=== PATIENT | female | born 1990 | race Caucasian/White ===

== ENCOUNTER 2016-07-21 15:16 | Emergency (ER) | payer SELFPAY ==
[2016-07-21] MEDS ORDERED: IBUPROFEN 800 MG TABLET PO ONE (16:25)
--- NOTE | 2016-07-21 16:25 | ER Document Report ---
ED Medical Screen (RME) - General Stated Complaint: ANKLE INJURY Time seen by provider: 16:22 Mode of Arrival: Wheelchair Information source: Patient Notes: 26-year-old female presents to ED for left ankle pain since July 16 after she rolled her ankle. She bought a brace from the [facility] or her ankle but states that the ankle is not getting better. States she's broken this ankle in the past. She states her pain is sharp and sometimes achy. Last menstrual period 2016. I have greeted and performed a rapid initial assessment of this patient. A comprehensive ED assessment and evaluation of the patient, analysis of test results and completion of medical decision making process will be conducted by an additional ED providers. - Related Data Allergies/Adverse Reactions: No Known Allergies Allergy (Verified 02/17/13 17:41) Past Medical History Musculoskeltal Medical History: Reports Hx Musculoskeletal Deformity Past Surgical History: Reports: Hx Orthopedic Surgery - Immunizations Immunizations up to date: Yes Hx Diphtheria, Pertussis, Tetanus Vaccination: Yes
[2016-07-21 18:08] VITALS: BP 119/71
--- NOTE | 2016-07-21 18:09 | ER Document Report ---
HPI - HPI Patient complains to provider of: ankle injury Onset: Other - 5 days ago Onset/Duration: Persistent Quality of pain: Achy Pain Level: 3 Context: Patient states she rolled her ankle 5 days ago while wearing flip-flops. Patient does state she has a previous history of ankle fracture involving this ankle when she was younger. Patient complains of continued pain with weightbearing. Associated Symptoms: Other Exacerbated by: Standing - Left ankle pain, Movement, Walking Relieved by: Denies Similar symptoms previously: Yes Recently seen / treated by doctor: No - ROS ROS below otherwise negative: Yes Systems Reviewed and Negative: Yes All other systems reviewed and negative - CONSTITUTIONAL Constitutional: DENIES: Fever, Chills - REPRODUCTIVE Reproductive: DENIES: : - MUSCULOSKELETAL Musculoskeletal: REPORTS: Extremity pain - Left ankle. DENIES: Swelling - DERM Skin Color: Normal Skin Problems: None Past Medical History - General Information source: Patient - Social History Smoking Status: Never Smoker Chew tobacco use (# tins/day): No Frequency of alcohol use: Occasional Drug Abuse: None Occupation: full-time student Lives with: Family Family History: None, Malignancy Patient has suicidal ideation: No Patient has homicidal ideation: No - Medical History Medical History: Negative Renal/ Medical History: Denies: Hx Peritoneal Dialysis Musculoskeltal Medical History: Reports Hx Musculoskeletal Deformity Past Surgical History: Reports: Hx Orthopedic Surgery - Immunizations Immunizations up to date: Yes Hx Diphtheria, Pertussis, Tetanus Vaccination: Yes Vertical Provider Document - CONSTITUTIONAL Agree With Documented VS: Yes Exam Limitations: No Limitations General Appearance: WD/WN, No Apparent Distress - INFECTION CONTROL TRAVEL OUTSIDE OF THE [place] IN LAST 30 DAYS: No - HEENT HEENT: Atraumatic, Normocephalic - NECK Neck: Normal Inspection, Supple - RESPIRATORY Respiratory: Breath Sounds Normal, No Respiratory Distress O2 Sat by Pulse Oximetry: 99 - CARDIOVASCULAR Cardiovascular: Regular Rate, Regular Rhythm, No Murmur Pulses: Normal: Posterior tibial, Dorsalis pedis - MUSCULOSKELETAL/EXTREMETIES Musculoskeletal/Extremeties: MAEW, Tender - Left ankle tenderness over lateral malleolar area, no edema. Patient with distal tibia tenderness as well as distal fibula tenderness, no ecchymosis or swelling, No Edema. negative: Eccymosis Notes: No deformity, no dislocation - NEURO Level of Consciousness: Awake, Alert, Appropriate Motor/Sensory: No Motor Deficit, No Sensory Deficit - DERM Integumentary: Warm, Dry, No Rash Course - Vital Signs Vital signs: Temp Pulse Resp BP Pulse Ox 98.7 F 86 18 111/69 99 07/21/16 16:21 07/21/16 16:21 07/21/16 16:21 07/21/16 16:21 07/21/16 16:21 - Diagnostic Test Radiology reviewed: Image reviewed, Reports reviewed Procedures - Immobilization Left Ankle Pre-Proc Neuro Vasc Exam: Normal Immobilizer type: Ankle stirrup Performed by: PCT Post-Proc Neuro Vasc Exam: Normal Alignment checked and good: Yes Discharge - Discharge Clinical Impression: Left ankle sprain Qualifiers: Encounter type: initial encounter Involved ligament of ankle: unspecified ligament Qualified Code(s): S93.402A - Sprain of unspecified ligament of left ankle, initial encounter Condition: Stable Disposition: HOME, SELF-CARE Instructions: Use of Crutches ([facility]), Ice & Elevation ([facility]), Ankle Stirrup Splint ([facility]), Oral Narcotic Medication ([facility]), Sprained Ankle ([facility]) Additional Instructions: Return immediately for any new or worsening symptoms Followup with your primary care provider, call tomorrow to make a followup appointment Weightbearing as tolerated Follow-up with orthopedic DrGrazyna for further evaluation, call tomorrow for an appointment Prescriptions: Hydrocodone/Acetaminophen [[place] 5-325 Tablet] 1 each PO Q4 PRN #15 tablet PRN Reason: Referrals: [facility] ([facility]) [Provider Group] - Follow up in 3-5 days
== END 2016-07-21 18:30 | disposition home or self-care (01) ==
LOC: ER 15:16
DX: S93.402A Sprain of unspecified ligament of left ankle, initial encounter (principal); X50.0XXA Overexertion from strenuous movement or load, initial encounter
CPT/HCPCS: 99283; 73590; L1830; L4350

== ENCOUNTER 2016-08-26 17:24 | Emergency (ER) | payer OTHER ==
[2016-08-26] MEDS ORDERED: METOCLOPRAMIDE HCL ORAL SOLN 10 MG/10 ML UDCUP PO ONE (19:39)
[2016-08-26] MEDS ORDERED: MAG HYDROX/AL HYDROX/SIMETH SUSP 30 ML UDCUP PO ONE (19:39)
[2016-08-26] MEDS ORDERED: LIDOCAINE 2% VISCOUS SOLN 20 ML UDCUP PO ONE (19:39)
--- NOTE | 2016-08-26 19:40 | ER Document Report ---
ED General - General Chief Complaint: Abdominal Pain Stated Complaint: ABDOMINAL PAIN Mode of Arrival: Ambulatory Information source: Patient Notes: 26-year-old female history of gastric reflux presents with complaints of epigastric abdominal burning sensation associated worsening with food with some mild nausea. Patient denies any fevers or chills denies any abdominal pain elsewhere. Patient's initial complaint was that she thought she may have parasites given that her stool is extremely but she has not noticed any parasites themselves TRAVEL OUTSIDE OF THE [place] IN LAST 30 DAYS: No - HPI Onset: Last week Onset/Duration: Waxing and waning Quality of pain: Burning Severity: Mild Pain Level: 1 Associated symptoms: Nausea Exacerbated by: Food Relieved by: Denies Similar symptoms previously: Yes Recently seen / treated by doctor: No - Related Data Allergies/Adverse Reactions: No Known Allergies Allergy (Verified 08/26/16 17:51) Past Medical History - Social History Smoking Status: Never Smoker Cigarette use (# per day): No Chew tobacco use (# tins/day): No Smoking Education Provided: No Family History: None, Malignancy Patient has suicidal ideation: No Patient has homicidal ideation: No Renal/ Medical History: Denies: Hx Peritoneal Dialysis Musculoskeltal Medical History: Reports Hx Musculoskeletal Deformity Past Surgical History: Reports: Hx Orthopedic Surgery - Immunizations Immunizations up to date: Yes Hx Diphtheria, Pertussis, Tetanus Vaccination: Yes Review of Systems - Review of Systems Notes: REVIEW OF SYSTEMS: CONSTITUTIONAL : Denies fever, chills, or sweats. Denies recent illness. EENT: Denies eye, ear, throat, or mouth pain or symptoms. Denies nasal or sinus congestion or discharge. Denies throat, tongue, or mouth swelling or difficulty swallowing. CARDIOVASCULAR: Denies chest pain. Denies palpitations or racing or irregular heart beat. Denies ankle edema. RESPIRATORY: Denies cough, cold, or chest congestion. Denies shortness of breath, difficulty breathing, or wheezing. GASTROINTESTINAL: Admits to abdominal pain GENITOURINARY: Denies difficulty urinating, painful urination, burning, frequency, blood in urine, or discharge. FEMALE GENITOURINARY: Denies vaginal bleeding, heavy or abnormal periods, irregular periods. Denies vaginal discharge or odor. MUSCULOSKELETAL: Denies back or neck pain or stiffness. Denies joint pain or swelling. SKIN: Denies rash, lesions or sores. HEMATOLOGIC : Denies easy bruising or bleeding. LYMPHATIC: Denies swollen, enlarged glands. NEUROLOGICAL: Denies confusion or altered mental status. Denies passing out or loss of consciousness. Denies dizziness or lightheadedness. Denies headache. Denies weakness or paralysis or loss of use of either side. Denies problems with gait or speech. Denies sensory loss, numbness, or tingling. Denies seizures. PSYCHIATRIC: Denies anxiety or stress. Denies depression, suicidal ideation, or homicidal ideation. ALL OTHER SYSTEMS REVIEWED AND NEGATIVE. Dictation was performed using [employer] recognition software PHYSICAL EXAMINATION: GENERAL: Well-appearing, well-nourished and in no acute distress. HEAD: Atraumatic, normocephalic. EYES: Pupils equal round and reactive to light, extraocular movements intact, conjunctiva are normal. ENT: Nares patent, oropharynx clear without exudates. Moist mucous membranes. NECK: Normal range of motion, supple without lymphadenopathy LUNGS: Breath sounds clear to auscultation bilaterally and equal. No wheezes rales or rhonchi. HEART: Regular rate and rhythm without murmurs ABDOMEN: Soft, mildly tender epigastric no rebound or guarding Female : deferred Musculoskeletal: Normal range of motion, no pitting or edema. No cyanosis. NEUROLOGICAL: Cranial nerves grossly intact. Normal speech, normal gait. Normal sensory, motor exams PSYCH: Normal mood, normal affect. SKIN: Warm, Dry, normal turgor, no rashes or lesions noted. Physical Exam - Vital signs Vitals: Temp Pulse Resp BP Pulse Ox 98.3 F 79 16 130/88 H 98 08/26/16 17:52 08/26/16 17:52 08/26/16 17:52 08/26/16 17:52 08/26/16 17:52 Course - Re-evaluation Re-evalutation: 08/26/16 21:09 Physical examination notes mild tenderness, GI cocktail was given which resolved patient's pain. I do believe the pain secondary to gastric reflux. Patient is already on Zantac and will be given omeprazole as well. Patient is given a GI follow-up. Otherwise patient looks well, I did ask for a stool culture but given that white count is not elevated she has less concern for parasite and will defer at this time After performing a Medical Screening Examination, I estimate there is LOW risk for ACUTE APPENDICITIS, BOWEL OBSTRUCTION, ACUTE CHOLECYSTITIS, PERFORATED DIVERTICULITIS, INCARCERATED HERNIA, PANCREATITIS, PELVIC INFLAMMATORY DISEASE, PERFORATED ULCER, ECTOPIC , or TUBO-OVARIAN ABSCESS, thus I consider the discharge disposition reasonable. Also, there is no evidence or peritonitis , sepsis, or toxicity. I have reevaluated this patient multiple times and no significant life threatening changes are noted. The patient and I have discussed the diagnosis and risks, and we agree with discharging home with close follow-up with the understanding that symptoms and presentations can change. We also discussed returning to the Emergency Department immediately if new or worsening symptoms occur. We have discussed the symptoms which are most concerning (e.g., bloody stool, fever, changing or worsening pain, vomiting) that necessitate immediate return. - Vital Signs Vital signs: Temp Pulse Resp BP Pulse Ox 97.7 F 78 16 108/75 98 08/26/16 20:52 08/26/16 20:52 08/26/16 20:52 08/26/16 20:52 08/26/16 20:52 - Laboratory Result Diagrams: 08/26/16 20:02 08/26/16 20:02 Laboratory results interpreted by me: 08/26/16 08/26/16 08/26/16 20:02 20:02 20:02 Hgb 15.7 H Calcium 10.3 H Total Protein 9.0 H Albumin 5.2 H Ur Leukocyte Esterase TRACE H Discharge - Discharge Clinical Impression: Epigastric abdominal pain Condition: Stable Disposition: HOME, SELF-CARE Instructions: Abdominal Pain ([facility]), Reflux Disease (GERD) ([facility]) Prescriptions: Omeprazole 20 mg PO DAILY #30 tablet. Referrals: JAKOB OCHOA MD [ACTIVE STAFF] - Follow up tomorrow
[2016-08-26 20:15] LABS: ABSOLUTE BASOPHILS # (AUTO) 0.1 10^3/uL (0.0-0.2); ABSOLUTE EOSINOPHILS # (AUTO) 0.3 10^3/uL (0.0-0.6); ABSOLUTE LYMPHOCYTES (AUTO) 2.9 10^3/uL (0.5-4.7); ABSOLUTE MONOCYTES (AUTO) 0.7 10^3/uL (0.1-1.4); BASOPHILS % (AUTO) 0.8 % (0-2); EOSINOPHILS % (AUTO) 3.4 % (0-6); HEMOGLOBIN 15.7 g/dL (12.0-15.5); HGB HCT DIFFERENCE 2.1; LYMPHOCYTES % (AUTO) 32.1 % (13-45); MEAN CORPUSCULAR HEMOGLOBIN 29.6 pg (27.0-33.4); MEAN CORPUSCULAR HGB CONC 34.8 g/dL (32.0-36.0); MEAN CORPUSCULAR VOLUME 85 fl (80-97); MONOCYTES % (AUTO) 7.7 % (3-13); RED BLOOD COUNT 5.28 10^6/uL (3.72-5.28); RED CELL DISTRIBUTION WIDTH 12.8 % (11.5-14.0); WHITE BLOOD COUNT 8.9 10^3/uL (4.0-10.5)
[2016-08-26 20:30] LABS: ALANINE AMINOTRANSFERASE 32 U/L (9-52); ALBUMIN 5.2 g/dL (3.5-5.0); ALKALINE PHOSPHATASE 75 U/L (38-126); ANION GAP 17 (5-19); ASPARTATE AMINO TRANSFERASE 24 U/L (14-36); BILIRUBIN,DIRECT 0.4 mg/dL (0.0-0.4); BILIRUBIN,TOTAL 0.7 mg/dL (0.2-1.3); BLOOD UREA NITROGEN 8 mg/dL (7-20); CALCIUM 10.3 mg/dL (8.4-10.2); CARBON DIOXIDE 28 mmol/L (22-30); CHLORIDE 99 mmol/L (98-107); CREATININE RESULT 0.72 mg/dL (0.52-1.25); GLUCOSE 95 mg/dL (75-110); LIPASE 54.8 U/L (23-300); POTASSIUM 4.3 mmol/L (3.6-5.0); SODIUM 143.6 mmol/L (137-145)
[2016-08-26 20:32] LABS: APPEARANCE,URINE CLEAR; BILIRUBIN,URINE NEGATIVE (NEGATIVE); GLUCOSE, URINE NEGATIVE (NEGATIVE); KETONES,URINE NEGATIVE (NEGATIVE); LEUKOCYTE ESTERASE,URINE TRACE (NEGATIVE); NITRITE,URINE NEGATIVE (NEGATIVE); PROTEIN,URINE NEGATIVE (NEGATIVE); URINE SPECIFIC GRAVITY 1.006; UROBILINOGEN,URINE NEGATIVE mg/dL (<2.0)
[2016-08-26 20:52] VITALS: BP 108/75
== END 2016-08-26 20:52 | disposition home or self-care (01) ==
LOC: ER 17:24
DX: R10.13 Epigastric pain (principal); R11.0 Nausea; Z79.899 Other long term (current) drug therapy
CPT/HCPCS: 99284; 36415; 83690; 85025; 81025; 80053; 81001; J3490

== ENCOUNTER 2017-06-10 12:38 | Outpatient (CLI) | payer OTHER ==
[2017-06-10 13:19] LABS: APPEARANCE,URINE SLIGHTLY-CLOUDY; BILIRUBIN,URINE NEGATIVE (NEGATIVE); COLOR,URINE YELLOW; GLUCOSE, URINE NEGATIVE (NEGATIVE); KETONES,URINE TRACE mg/dL (NEGATIVE); LEUKOCYTE ESTERASE,URINE TRACE (NEGATIVE); NITRITE,URINE NEGATIVE (NEGATIVE); PROTEIN,URINE NEGATIVE (NEGATIVE); UROBILINOGEN,URINE NEGATIVE mg/dL (<2.0)
[2017-06-10 13:36] LABS: URINE AMPHETAMINES SCREEN NEGATIVE; URINE BARBITURATES SCREEN NEGATIVE; URINE BENZODIAZEPINES SCREEN NEGATIVE; URINE COCAINE SCREEN NEGATIVE; URINE MARIJUANA (THC) SCREEN NEGATIVE; URINE METHADONE SCREEN NEGATIVE; URINE PHENCYCLIDINE SCREEN NEGATIVE
--- NOTE | 2017-06-10 13:42 | Non Stress Test Report ---
Non Stress Test Datetime Report Generated by CPN: 06/10/2017 13:42 DEMOGRAPHIC EGA NST: 35.3 INDICATION Indication for Study: Ordered by Provider MONITORING Monitor Explained: Monitor Explained; Test Explained; Patient Verbalized Understanding Time on Monitor: 06/10/2017 12:57 Time off Monitor: 06/10/2017 13:33 NST Duration: 36 NST INTERVENTIONS NST Interventions: PO Hydration; Reposition Patient Physician Notified NST: DrGrazyna Bolaños BABY A: [id number] BABY A Movement : Present Contraction Frequency : 1.5-6 FHR Baseline : 125 Accelerations : 15X15 Decelerations : None Variability : Moderate 6-25bpm NST Review: Meets Criteria for Reactive NST NST Review and Verified By : Kristie Taylor RN NST Results: Reactive NST REPORT Report Trigger: Send Report
== END 2017-06-10 13:40 | disposition home or self-care (01) ==
LOC: LC 12:38
PROVIDERS: ATTEND Student in an Organized Health Care Education/Training Program
PROC: 4A1HXCZ Monitoring of Products of Conception, Cardiac Rate, External Approach (ICD-10-PCS; principal; 2017-06-10)
DX: O99.283 Endocrine, nutritional and metabolic diseases complicating pregnancy, third trimester (principal); E86.0 Dehydration; O26.893 Other specified pregnancy related conditions, third trimester; R10.2 Pelvic and perineal pain; Z3A.35 35 weeks gestation of pregnancy
CPT/HCPCS: 59025; 80307; 81001; 87086

== ENCOUNTER 2017-07-11 23:48 | Outpatient (CLI) | payer OTHER ==
[2017-07-12 00:41] LABS: APPEARANCE,URINE CLEAR; BILIRUBIN,URINE NEGATIVE (NEGATIVE); COLOR,URINE STRAW; GLUCOSE, URINE NEGATIVE (NEGATIVE); KETONES,URINE NEGATIVE (NEGATIVE); LEUKOCYTE ESTERASE,URINE NEGATIVE (NEGATIVE); NITRITE,URINE NEGATIVE (NEGATIVE); PROTEIN,URINE NEGATIVE (NEGATIVE); URINE SPECIFIC GRAVITY 1.003; UROBILINOGEN,URINE NEGATIVE mg/dL (<2.0)
[2017-07-12 01:33] LABS: URINE AMPHETAMINES SCREEN NEGATIVE; URINE BARBITURATES SCREEN NEGATIVE; URINE BENZODIAZEPINES SCREEN NEGATIVE; URINE COCAINE SCREEN NEGATIVE; URINE MARIJUANA (THC) SCREEN NEGATIVE; URINE METHADONE SCREEN NEGATIVE; URINE PHENCYCLIDINE SCREEN NEGATIVE
--- NOTE | 2017-07-12 03:33 | Non Stress Test Report ---
Non Stress Test Datetime Report Generated by CPN: 07/12/2017 03:33 DEMOGRAPHIC EGA NST: 40.0 INDICATION Indication for Study: Other Indication for Study (NST) Other: LC URINE RESULTS Urine Protein, NST: Negative Urine Ketones - NST: Negative Urine Glucose - NST: Negative Urine Blood - NST: Positive MONITORING Monitor Explained: Monitor Explained; Test Explained; Patient Verbalized Understanding Time on Monitor: 07/12/2017 00:07 NST INTERVENTIONS NST Interventions: PO Hydration Physician Notified NST: Dr. Christian BABY A: [id number] BABY A Movement : Present Accelerations : 15X15 Decelerations : None Variability : Moderate 6-25bpm NST Review: Does Not Meet Criteria for Reactive NST NST Review and Verified By : Maria Dolores Benedict RN NST Results: Reactive NST REPORT Report Trigger: Send Report
== END 2017-07-12 03:19 | disposition home or self-care (01) ==
LOC: LC 23:48
PROVIDERS: ATTEND Obstetrics & Gynecology
PROC: 4A1HXCZ Monitoring of Products of Conception, Cardiac Rate, External Approach (ICD-10-PCS; principal; 2017-07-11)
DX: O47.1 False labor at or after 37 completed weeks of gestation (principal); O48.0 Post-term pregnancy; Z3A.40 40 weeks gestation of pregnancy
CPT/HCPCS: 59025; 80307; 81005

== ENCOUNTER 2017-07-14 04:35 | Inpatient (IN) | payer OTHER ==
[2017-07-14 05:40] LABS: APPEARANCE,URINE CLOUDY; BILIRUBIN,URINE NEGATIVE (NEGATIVE); COLOR,URINE YELLOW; GLUCOSE, URINE NEGATIVE (NEGATIVE); KETONES,URINE NEGATIVE (NEGATIVE); LEUKOCYTE ESTERASE,URINE TRACE (NEGATIVE); NITRITE,URINE NEGATIVE (NEGATIVE); PROTEIN,URINE NEGATIVE (NEGATIVE); URINE SPECIFIC GRAVITY 1.005; UROBILINOGEN,URINE NEGATIVE mg/dL (<2.0)
[2017-07-14 05:55] LABS: URINE AMPHETAMINES SCREEN NEGATIVE; URINE BARBITURATES SCREEN NEGATIVE; URINE BENZODIAZEPINES SCREEN NEGATIVE; URINE COCAINE SCREEN NEGATIVE; URINE MARIJUANA (THC) SCREEN NEGATIVE; URINE METHADONE SCREEN NEGATIVE; URINE PHENCYCLIDINE SCREEN NEGATIVE
[2017-07-14 06:04] LABS: ABSOLUTE EOSINOPHILS # (AUTO) 0.2 10^3/uL (0.0-0.6); ABSOLUTE LYMPHOCYTES (AUTO) 1.8 10^3/uL (0.5-4.7); ABSOLUTE MONOCYTES (AUTO) 0.9 10^3/uL (0.1-1.4); ABSOLUTE NEUT (AUTO) 6.4 10^3/uL (1.7-8.2); BASOPHILS % (AUTO) 0.2 % (0-2); EOSINOPHILS % (AUTO) 1.9 % (0-6); HEMATOCRIT 39.7 % (36.0-47.0); HEMOGLOBIN 13.6 g/dL (12.0-15.5); LYMPHOCYTES % (AUTO) 19.4 % (13-45); MEAN CORPUSCULAR HGB CONC 34.2 g/dL (32.0-36.0); MEAN CORPUSCULAR VOLUME 88 fl (80-97); MONOCYTES % (AUTO) 9.8 % (3-13); PLATELET COUNT 199 10^3/uL (150-450); RED BLOOD COUNT 4.52 10^6/uL (3.72-5.28); RED CELL DISTRIBUTION WIDTH 14.7 % (11.5-14.0); SEGMENTED NEUTROPHILS % (AUTO) 68.7 % (42-78); TOTAL CELLS COUNTED % (AUTO) 100 %; WHITE BLOOD COUNT 9.3 10^3/uL (4.0-10.5)
[2017-07-14] MEDS ORDERED: RINGERS SOLUTION,LACTATED 1,000 ML IV ONE (06:48)
[2017-07-14] MEDS ORDERED: RINGERS SOLUTION,LACTATED 1,000 ML IV PRN (06:48)
[2017-07-14] MEDS ORDERED: MISOPROSTOL 0.2 MG TABLET ONE (06:58)
[2017-07-14] MEDS ORDERED: FENTANYL/BUPIVACAINE/NS/PF 200 MCG/100 ML RTUINJ EPI ONE (06:59)
[2017-07-14] MEDS ORDERED: EPHEDRINE SULFATE INJ 50 MG/1 ML AMPULE ONE (06:59)
[2017-07-14] MEDS ORDERED: BUPIVACAINE HCL 0.25 % INJ/PF (2.5 MG/1 ML) 30 ML VIAL ONE (06:59)
[2017-07-14] MEDS ORDERED: OXYTOCIN/NORMAL SALINE 20 UNIT/1,000 ML RTUINJ ONE (06:59)
[2017-07-14] MEDS ORDERED: LIDOCAINE 1% INJ-PF (10 MG/ML) 30 ML SDV ONE (06:59)
--- NOTE | 2017-07-14 09:44 | L&D Progress Notes ---
PROGRESS NOTES Datetime Report Generated by CPN: 07/14/2017 09:44 PROGRESS NOTE Impression: Normal Progression of Labor Procedures: Sterile Vag Exam Plan: Continue Present Management Informed Consent Obtained: Vaginal Delivery Comment: Cat 1 strip, comfortable after epidural, irregular uc's VAGINAL EXAM Dilatation: 4 Effacement: 75 Station: -1 Contractions: irreg MEMBRANES Membranes: Ruptured Amniotic Fluid Color: Meconium, Heavy FETUS A FHR - Baseline: 130 Monitoring: External US Variability: Moderate 6-25bpm Accelerations: 15X15 Presentation: Vertex SIGNATURE SIGNATURE: [id number];[id number] SIGNATURE: [id number] SIGNATURE: [id number] Assignment: Radha Gonzales MD Signature: with User ID: [email or web address] : with User ID: [email or web address]
--- NOTE | 2017-07-14 11:10 | L&D Progress Notes ---
PROGRESS NOTES Datetime Report Generated by CPN: 07/14/2017 11:09 PROGRESS NOTE Comment: Feeling more pressure, complete, -2, will sit pt up to labor down and then start pushing, Cat 1 strip FETUS C SIGNATURE: [id number];[id number] Assignment: Radha Gonzales MD Signature: with User ID: [email or web address] : with User ID: [email or web address]
[2017-07-14] MEDS ORDERED: NALBUPHINE HCL INJ 10 MG/1 ML AMPULE ONE (14:44)
[2017-07-14] MEDS ORDERED: NALBUPHINE HCL INJ 10 MG/1 ML AMPULE IV ONE (15:11)
[2017-07-14 15:12] LABS: ARTERIAL BLOOD BASE EXCESS -6.5 mmol/L; ARTERIAL BLOOD H2CO3 1.24 mmol/L (1.05-1.35); ARTERIAL BLOOD HCO3 19.6 mmol/L (20-26); ARTERIAL BLOOD O2 SATURATION 68.9 % (94-98); ARTERIAL BLOOD PCO2 41.2 mmHg (35-45); ARTERIAL BLOOD TOTAL CO2 20.9 mmol/L (21-25)
[2017-07-14] MEDS ORDERED: NA PHOS,M-B/NA PHOS,DI-BA (ADULT) 133 ML ENEMA PR PRN (15:12)
[2017-07-14] MEDS ORDERED: ACETAMINOPHEN WITH CODEINE #3 TABLET PO PRN ×2 (15:12)
[2017-07-14] MEDS ORDERED: MEASLES,MUMPS&RUBELLA VACC/PF 0.5 ML VIAL SUBCUT PRN (15:12)
[2017-07-14] MEDS ORDERED: PSEUDOEPHEDRINE HCL 30 MG TABLET PO PRN (15:12)
[2017-07-14] MEDS ORDERED: ACETAMINOPHEN 650 MG SUPP.RECT PR PRN (15:12)
[2017-07-14] MEDS ORDERED: DIPH/PERTUSS(ACELL)/TETANUS VAC/PF 0.5 ML SYR (>=10YO) IM PRN (15:12)
[2017-07-14] MEDS ORDERED: BENZOCAINE/MENTHOL AEROSOL SPRAY 56 ML TOP PRN (15:12)
[2017-07-14] MEDS ORDERED: DIPHENHYDRAMINE HCL 25 MG CAPSULE PO PRN (15:12)
[2017-07-14] MEDS ORDERED: PROMETHAZINE HCL INJ 25 MG/1 ML VIAL IV PRN (15:12)
[2017-07-14] MEDS ORDERED: OXYTOCIN/NORMAL SALINE 20 UNIT/1,000 ML RTUINJ IV PRN (15:12)
[2017-07-14] MEDS ORDERED: DIBUCAINE 1% OINTMENT 28 GM TP PRN (15:12)
[2017-07-14] MEDS ORDERED: MAGNESIUM HYDROXIDE SUSP 30 ML UDCUP PO PRN (15:12)
[2017-07-14] MEDS ORDERED: GLYCERIN/WITCH HAZEL LEAF 1 EACH MED..PAD TP PRN (15:12)
[2017-07-14] MEDS ORDERED: PROMETHAZINE HCL 25 MG SUPP.RECT PR PRN (15:12)
[2017-07-14] MEDS ORDERED: PROMETHAZINE HCL 25 MG TABLET PO PRN (15:12)
[2017-07-14] MEDS ORDERED: MISOPROSTOL 0.2 MG TABLET PR PRN (15:12)
[2017-07-14 15:13] LABS: ARTERIAL BLOOD FIO2 CORD BLOOD; ARTERIAL BLOOD PO2 39.6 mmHg (80-100)
--- NOTE | 2017-07-14 15:14 | Warning Signs in Babies ---
VOD Warning Signs Datetime Report Generated by N: 07/14/2017 15:14 VOD#608 -Warning Signs in Babies: Viewed with Parent(s)/Family (07/14/2017 15:12:Arcelia Montejo RN)
[2017-07-14] MEDS: FERROUS SULFATE 325 MG TABLET PO SCH (18:12)
[2017-07-14] MEDS: DOCUSATE SODIUM 100 MG CAPSULE PO SCH (18:13)
[2017-07-14] MEDS ORDERED: METHYLERGONOVINE MALEATE 0.2 MG TABLET ONE (20:09)
[2017-07-14] MEDS ORDERED: ONDANSETRON 4 MG TAB.RAPDIS ONE (20:09)
[2017-07-14] MEDS ORDERED: ONDANSETRON 4 MG TAB.RAPDIS PO ONE (20:30)
[2017-07-14] MEDS ORDERED: METHYLERGONOVINE MALEATE 0.2 MG TABLET PO ONE (20:30)
[2017-07-14 20:47] LABS: HEMOGLOBIN 12.5 g/dL (12.0-15.5); MEAN CORPUSCULAR HEMOGLOBIN 29.5 pg (27.0-33.4); MEAN CORPUSCULAR HGB CONC 33.7 g/dL (32.0-36.0); MEAN CORPUSCULAR VOLUME 88 fl (80-97); PLATELET COUNT 178 10^3/uL (150-450); RED BLOOD COUNT 4.23 10^6/uL (3.72-5.28); RED CELL DISTRIBUTION WIDTH 14.4 % (11.5-14.0); WHITE BLOOD COUNT 17.3 10^3/uL (4.0-10.5)
[2017-07-14] MEDS ORDERED: FAMOTIDINE 20 MG TABLET PO SCH (22:00)
[2017-07-14] MEDS: IBUPROFEN 800 MG TABLET PO SCH (22:08)
[2017-07-15] MEDS: IBUPROFEN 800 MG TABLET PO SCH ×3 (05:04→21:55)
[2017-07-15 07:54] LABS: HEMATOCRIT 37.4 % (36.0-47.0); HEMOGLOBIN 12.6 g/dL (12.0-15.5); MEAN CORPUSCULAR HEMOGLOBIN 29.7 pg (27.0-33.4); MEAN CORPUSCULAR HGB CONC 33.8 g/dL (32.0-36.0); MEAN CORPUSCULAR VOLUME 88 fl (80-97); PLATELET COUNT 149 10^3/uL (150-450); RED BLOOD COUNT 4.25 10^6/uL (3.72-5.28); RED CELL DISTRIBUTION WIDTH 14.7 % (11.5-14.0); WHITE BLOOD COUNT 12.3 10^3/uL (4.0-10.5)
--- NOTE | 2017-07-15 10:13 | PDOC PROGRESS REPORT ---
Subjective-OB Progress Note for:: 07/15/17 Physical Exam (OB) Vital Signs: Temp Pulse Resp BP Pulse Ox 97.9 F 83 18 115/68 97 07/15/17 07:58 07/15/17 07:58 07/15/17 07:58 07/15/17 07:58 07/15/17 07:58 Intake & Output 07/14/17 07/15/17 07/16/17 06:59 06:59 06:59 Weight 106.633 kg - Lochia Lochia Amount: Moderate 25-50 ml Lochia Color: Rubra/Red - Abdomen Description: Soft, Flat Hernia Present: No Fundal Description: Firm, Midline Fundal Height: u/u - u/2 - Respiratory Breath sounds: Clear - Extremities Ankle: Normal Objective-Diagnostic Laboratory: 07/15/17 07:19 07/14/17 07/14/17 07/15/17 14:23 20:35 07:19 WBC 17.3 H 12.3 H RBC 4.23 4.25 Hgb 12.5 12.6 Hct 37.0 37.4 MCV 88 88 MCH 29.5 29.7 MCHC 33.7 33.8 RDW 14.4 H 14.7 H Plt Count 178 149 L Carbonic Acid 1.24 HCO3/H2CO3 Ratio 15:1 ABG pH 7.30 L ABG pCO2 41.2 ABG pO2 39.6 L* ABG HCO3 19.6 L ABG O2 Saturation 68.9 L ABG Base Excess -6.5 FiO2 CORD BLOOD
[2017-07-15] MEDS: FERROUS SULFATE 325 MG TABLET PO SCH ×2 (10:27→21:53)
[2017-07-15] MEDS: DOCUSATE SODIUM 100 MG CAPSULE PO SCH ×2 (10:27→21:53)
[2017-07-15] MEDS: SENNOSIDES/DOCUSATE 8.6-50 MG 1 EACH TABLET PO SCH (10:27)
[2017-07-15] MEDS: PRENATAL VITAMIN W DHA CAPSULE PO SCH (10:27)
[2017-07-16] MEDS: IBUPROFEN 800 MG TABLET PO SCH ×2 (06:16→14:30)
[2017-07-16 08:37] VITALS: BP 123/67
--- NOTE | 2017-07-16 10:11 | PDOC DISCHARGE SUMMARY ---
Final Diagnosis Discharge Date: 07/16/17 - Final Diagnosis (1) Normal vaginal delivery Is this a current diagnosis for this admission?: Yes (2) Spontaneous rupture of amniotic membranes Is this a current diagnosis for this admission?: Yes (3) Thick meconium stained amniotic fluid Is this a current diagnosis for this admission?: Yes Discharge Data - Discharge Medication Prescriptions: Docusate Sodium [Colace 100 mg Capsule] 100 mg PO BID #60 capsule Ibuprofen [Motrin 800 mg Tablet] 800 mg PO Q8 #60 tablet Home Medications: No122/Iron/Folic Acid [ Multi Tablet] 1 each PO DAILY 06/10/17 Ranitidine HCl [Zantac 75 mg Tablet] 75 mg PO PRN PRN 07/14/17 Docusate Sodium [Colace 100 mg Capsule] 100 mg PO BID #60 capsule 07/16/17 Ibuprofen [Motrin 800 mg Tablet] 800 mg PO Q8 #60 tablet 07/16/17 Reason(s) for Admission: Onset of Labor Procedures: NST Intrapartum Procedure(s): Spontaneous Vaginal Delivery Complication(s): Laceration-Perineal Laceration-Degree: 2nd - Flushing Data Baby 1 Female Home with Mother: Yes Complications: Yes - nicu in meconium - Diagnosis Test Laboratory: Temp Pulse Resp BP Pulse Ox 98.3 F 85 18 123/67 98 07/16/17 08:05 07/16/17 08:05 07/16/17 08:05 07/16/17 08:05 07/16/17 08:05 07/14/17 07/14/17 07/14/17 04:47 05:45 20:35 RBC 4.52 4.23 Hgb 13.6 12.5 Hct 39.7 37.0 Urine Opiates Screen NEGATIVE 07/15/17 07:19 RBC 4.25 Hgb 12.6 Hct 37.4 Urine Opiates Screen - Discharge information/Instructions Discharge Activity: Activity As Tolerated, Pelvic Rest, No tub bath Discharge Diet: Regular Disposition: HOME, SELF-CARE Follow up with: [facility] in: 4, Weeks
[2017-07-16] MEDS: FERROUS SULFATE 325 MG TABLET PO SCH (11:30)
[2017-07-16] MEDS: DOCUSATE SODIUM 100 MG CAPSULE PO SCH (11:30)
[2017-07-16] MEDS: SENNOSIDES/DOCUSATE 8.6-50 MG 1 EACH TABLET PO SCH (11:30)
[2017-07-16] MEDS: PRENATAL VITAMIN W DHA CAPSULE PO SCH (11:30)
--- NOTE | 2017-07-17 12:59 | Admission Physical ---
Datetime Report Generated by Cher: 07/17/2017 12:59 EGA: 40.2 Informed Consent Obtained: Vaginal Delivery; Risks, Benefits and Alternatives Discussed Signature: with User ID: [email or web address]
--- NOTE | 2017-07-17 12:59 | Delivery Summary ---
Del Sum A-C Datetime Report Generated by CPN: 07/17/2017 12:59 DELIVERY PERSONNEL DELIVERY PERSONNEL: [id number] Delivery Doctor:: Stephanie Hobbs CNM Labor and Delivery Nurse:: NARESH Jane Labor and Delivery Nurse:: Arcelia Montejo RN Nursery Nurse:: Porsche Moreno RN Nursery Nurse:: Mily Donovan RN Student Observers:: Jody Parson [place], Danielle McCartney Car Changer/SEWER PIPE OFFBEARER: Abi Vazquez, ST MATERNAL INFORMATION Delivery Anesthesia: Epidural Medications During Delivery: none Medications After Delivery: Pitocin Bolus-Please Comment; Pitocin Drip 20 Units/1000ml NSS; Cytotec 600mcg Per Rectum/Vagina Meds After Delivery Comment: pitocin 20 units in 1000ml NS bolusing after delivery of placenta Maternal Complications: None Provider Comments: Pt progressed and vtx was delivered, NC x 1, loosley, delivered without difficulty, large amount of thick mec, shoulders trying to deliver, Shira, pushing, suprapubic pressure with delivery of body, poor maternal effort after vtx delivered, OA to VIRY, rt shoulder stuck, placed on mothers abd, suctioned, large mec, cord clamped and cut by HSB [facility]. Cord gas obtained, cord blood to lab, spont delivery of grossly large mec stained placenta, 3 VC cytotec 600 mcg via rectum Laceration repaired with 2-0 chromic without difficulty sponge removed, rectum patent, FFFM Baby to nursery for stabilization, O 2 and suctioned, LABOR SUMMARY EDC: 07/12/2017 00:00 No. Babies in Womb: 1 Attempted: No Labor Anesthesia: Epidural LABOR INFORMATION Reason for Induction: Not Applicable Onset of Labor: 07/14/2017 08:00 Complete Dilatation: 07/14/2017 12:56 Cervical Ripening Agents: Cytotec @ 600 Oxytocin: N/A Group B Beta Strep: negative Antibiotics # of Doses: 0 Antibiotics Time of Last Dose: n/a Name of Antibiotic Given: n/a Steroids Given: None Reason Steroids Not Administered: Not Applicable Other Reason Not Administered: n/a MEMBRANES Membranes Rupture Method: Spontaneous Rupture of Membranes: 07/14/2017 04:00 Length of Rupture (hr): 10.52 Amniotic Fluid Color: Moderate Meconium Amniotic Fluid Amount: Large Amniotic Fluid Odor: Normal STAGES OF LABOR Stage 1 hr: 4 Stage 1 min: 56 Stage 2 hr: 1 Stage 2 min: 35 Stage 3 hr: 0 Stage 3 min: 4 Total Time in Labor hr: 6 Total Time in Labor min: 35 VAGINAL DELIVERY Episiotomy: Median Laceration #1: Vaginal Laceration Extension #1: Second Degree Laceration Repair: Yes Laceration Repair Note: 2-0 chromic, repaired without difficulty, Nubain 10 and 10cc Xylocaine 1 % Sponge Count Correct: N/A Sharps Count Correct: N/A CSECTION DELIVERY Primary Indication: N/A Secondary Indication: N/A CSection Incidence: N/A Labor: N/A Elective: N/A CSection Incision: N/A BABY A INFORMATION Infant Delivery Date/Time: 07/14/2017 14:31 Method of Delivery: Vaginal Born in Route : No : N/A Forceps: N/A Vacuum Extraction: N/A Shoulder Dystocia : Yes SHOULDER DYSTOCIA BABY A Delivery of Head: 07/14/2017 14:29 Time Head to Delivery : 2.0 1st Intervention to Resolve: McRobert's Maneuver 2nd Intervention to Resolve: Suprapubic Pressure Verify NO Fundal Pressure: No Fundal Pressure Applied PRESENTATION/POSITION BABY A Presentation: Cephalic Cephalic Presentation: Vertex Vertex Position: Right Occipital Anterior Breech Presentation: N/A PLACENTA INFORMATION BABY A Placenta Delivery Time : 07/14/2017 14:35 Placenta Method of Delivery: Spontaneous Placenta Status: Delivered SCORES BABY A Heart Rate 1 min: >100 bpm Resp Effort 1 min: Slow, Irregular Reflex Irritability 1 min: Grimace Muscle Tone 1 min: Some Flexion of Extremities Color 1 min: Blue/Pale Resuscitation Effort 1 min: Tactile Stimulation; Oxygen SCORE 1 MIN: 5 Heart Rate 5 min: >100 bpm Resp Effort 5 min: Slow, Irregular Reflex Irritability 5 min: Cough or Sneeze or Pulls Away Muscle Tone 5 min: Some Flexion of Extremities Color 5 min: Body [place], Extremities Blue Resuscitation Effort 5 min: Tactile Stimulation; Oxygen; PPV/NCPAP SCORE 5 MIN: 7 INFORMATION BABY A Gestational Age at Delivery: 40.2 Gestational Status: Full Term- 39- 40.6 Weeks Infant Outcome : Liveborn Infant Condition : Stable Sex: Female IDENTIFICATION BABY A Infant Verification Date/Time: 07/14/2017 14:43 ID Band Number: [id number] Mother's Name Verified: Yes RN Verifying : A Hua RN Colette Gonzales RN WEIGHT/LENGTH BABY A Infant Birthweight (gm): 4150 Infant Weight (lb): 9 Infant Weight (oz): 2 Length (in): 21.00 Infant Length (cm): 53.34 CORD INFORMATION BABY A No. Cord Vessels: 3 Nuchal Cord : Around Neck x1, Loose Cord Blood Taken: Yes-For Eval (Mom's Blood Type - or O+) Suction: Mouth; Nose ASSESSMENT BABY A Skin to Skin: Yes Care By: Porsche Moreno RN, Mily Donovan RN Transferred To: NICU BABY B INFORMATION : N/A
--- NOTE | 2017-07-17 13:01 | Admission Physical ---
Datetime Report Generated by Cher: 07/17/2017 13:01 EGA: 40.2 Informed Consent Obtained: Vaginal Delivery; Risks, Benefits and Alternatives Discussed Signature: with User ID: [email or web address]
--- NOTE | 2017-07-17 13:08 | Admission Physical ---
Datetime Report Generated by CPN: 07/17/2017 13:07 CURRENT ADMISSION Chief Complaint: Uterine Contractions; Suspected Ruptured Membranes Indication for Induction: Not Applicable Admit Impression : Term, Intrauterine ; No Active Labor; Ruptured Membranes Admit Plan: Admit to Unit ALLERGIES Medication Allergies: No Medication Allergies: No Known Allergies (07/14/2017) Medication Allergies: No Known Allergies (08/26/2016) Latex: No Latex Allergies Food Allergies: N/A Environmental Allergies: Seasonal OBSTETRICAL HISTORY EDC: 07/12/2017 00:00 : 1 Para: 0 Term: 0 : 0 SAB: 0 IAB: 0 Ectopic: 0 Livin Cesareans: 0 VBACs: 0 Multiple Births: 0 Gestational Diabetes: Yes Rh Sensitization: No Incompetent Cervix: No ADRIANA: No Infertility: No ART Treatment: No Uterine Anomaly: No IUGR: No Hx Previous C/S: No Macrosomia: No Hx Loss/Stillborn: No PIH: No Hx : No Placenta Previa/Abruption: No Depression/PP Depression: No PTL/PROM: No Post Hemorrhage: No Current Procedures: Ultrasound; NST Obstetrical History Comments: G1 - Current SEE RECORDS Alcohol: No Marijuana : No Cocaine: No Other Illicit Drugs: No Cigarettes: Former Smoker. 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 Heart Disease: No Hosp/Surgery: No Autoimmune Disorder: No Anesthetic Complications: No Kidney Disease: Yes Abnormal Pap Smear: No Neuro/Epilepsy: No Psychiatric Disorders: No Other Medical Diseases: No Hepatitis/Liver Disease: No Significant Family History: No Varicosities/Phlebitis: No Trauma/Violence : No Thyroid Dysfunction: No Medical History Comments: UTI INFECTIOUS HISTORY Gonorrhea: No Genital Herpes: No Chlamydia: No Tuberculosis: No Syphilis: No Hepatitis: No HIV/AIDS Exposure: No Rash or Viral Illness: No HPV: No PHYSICAL EXAM General: Normal HEENT: Normal Neurologic: Normal Thyroid: Deferred Heart: Normal Lungs: Normal Breast: Deferred Back: Normal Abdomen: Normal Genitourinary Exam: Normal Extremities: Normal DTRs: Normal Pelvic Type: Adequate Vital Signs: Reviewed VAGINAL EXAM Dilatation: 4 Effacement: 75 Station: -1 Contraction Comments: irreg MEMBRANES Membranes: Ruptured Amniotic Fluid Color: Meconium, Heavy FETUS A EGA: 40.2 Monitoring: External US FHR- Baseline: 155 Variability: Moderate 6-25bpm Accelerations: 15X15 Decelerations: None FHR Category: Category I Presentation: Vertex Admit Comment: 27yo at 40+2ega presents for SROM at approx 0400 with meconium. c/b anxiety. 1 hr normal but baby measuring large at 32wks - was checking BS and not compliant. EFW 7#7oz on 06/26. GBS negative. Admit to L_D for SROM in early labor. Will augment with pitocin if needed. (Annotations: Data stored by N on behalf of user) PLANS FOR LABOR AND DELIVERY Labor and Delivery: None Pain Management: Epidural Feeding Preference: Breast Benefit of Breast Feed Discussed: Yes Circumcision: N/A INFORMED CONSENT Informed Consent Obtained: Vaginal Delivery Informed Consent Obtained: Vaginal Delivery; Risks, Benefits and Alternatives Discussed Signature: with User ID: [email or web address]
--- NOTE | 2017-07-17 13:15 | Admission Physical ---
Datetime Report Generated by CPN: 07/17/2017 13:15 CURRENT ADMISSION Chief Complaint: Uterine Contractions; Suspected Ruptured Membranes Indication for Induction: Not Applicable Admit Impression : Term, Intrauterine ; No Active Labor; Ruptured Membranes Admit Plan: Admit to Unit ALLERGIES Medication Allergies: No Medication Allergies: No Known Allergies (07/14/2017) Medication Allergies: No Known Allergies (08/26/2016) Latex: No Latex Allergies Food Allergies: N/A Environmental Allergies: Seasonal OBSTETRICAL HISTORY EDC: 07/12/2017 00:00 : 1 Para: 0 Term: 0 : 0 SAB: 0 IAB: 0 Ectopic: 0 Livin Cesareans: 0 VBACs: 0 Multiple Births: 0 Gestational Diabetes: Yes Rh Sensitization: No Incompetent Cervix: No ADRIANA: No Infertility: No ART Treatment: No Uterine Anomaly: No IUGR: No Hx Previous C/S: No Macrosomia: No Hx Loss/Stillborn: No PIH: No Hx : No Placenta Previa/Abruption: No Depression/PP Depression: No PTL/PROM: No Post Hemorrhage: No Current Procedures: Ultrasound; NST Obstetrical History Comments: G1 - Current SEE RECORDS Alcohol: No Marijuana : No Cocaine: No Other Illicit Drugs: No Cigarettes: Former Smoker. 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 Heart Disease: No Hosp/Surgery: No Autoimmune Disorder: No Anesthetic Complications: No Kidney Disease: Yes Abnormal Pap Smear: No Neuro/Epilepsy: No Psychiatric Disorders: No Other Medical Diseases: No Hepatitis/Liver Disease: No Significant Family History: No Varicosities/Phlebitis: No Trauma/Violence : No Thyroid Dysfunction: No Medical History Comments: UTI INFECTIOUS HISTORY Gonorrhea: No Genital Herpes: No Chlamydia: No Tuberculosis: No Syphilis: No Hepatitis: No HIV/AIDS Exposure: No Rash or Viral Illness: No HPV: No PHYSICAL EXAM General: Normal HEENT: Normal Neurologic: Normal Thyroid: Deferred Heart: Normal Lungs: Normal Breast: Deferred Back: Normal Abdomen: Normal Genitourinary Exam: Normal Extremities: Normal DTRs: Normal Pelvic Type: Adequate Vital Signs: Reviewed VAGINAL EXAM Dilatation: 4 Effacement: 75 Station: -1 Contraction Comments: irreg MEMBRANES Membranes: Ruptured Amniotic Fluid Color: Meconium, Heavy FETUS A EGA: 40.2 Monitoring: External US FHR- Baseline: 155 Variability: Moderate 6-25bpm Accelerations: 15X15 Decelerations: None FHR Category: Category I Presentation: Vertex Admit Comment: 27yo at 40+2ega presents for SROM at approx 0400 with meconium. c/b anxiety. 1 hr normal but baby measuring large at 32wks - was checking BS and not compliant. EFW 7#7oz on 06/26. GBS negative. Admit to L_D for SROM in early labor. Will augment with pitocin if needed. (Annotations: Data stored by N on behalf of user) PLANS FOR LABOR AND DELIVERY Labor and Delivery: None Pain Management: Epidural Feeding Preference: Breast Benefit of Breast Feed Discussed: Yes Circumcision: N/A INFORMED CONSENT Informed Consent Obtained: Vaginal Delivery Informed Consent Obtained: Vaginal Delivery; Risks, Benefits and Alternatives Discussed Signature: with User ID: [email or web address]
== END 2017-07-16 14:38 | disposition home or self-care (01) | DRG 775 ==
LOC: LC 04:35 → LR 04:47 → 2S 17:50
PROVIDERS: ADMIT Student in an Organized Health Care Education/Training Program; ATTEND Student in an Organized Health Care Education/Training Program
PROC: 10E0XZZ Delivery of Products of Conception, External Approach (ICD-10-PCS; principal; 2017-07-14)
PROC: 0KQM0ZZ Repair Perineum Muscle, Open Approach (ICD-10-PCS; 2017-07-14)
PROC: 0W8NXZZ Division of Female Perineum, External Approach (ICD-10-PCS; 2017-07-14)
PROC: 4A1HXCZ Monitoring of Products of Conception, Cardiac Rate, External Approach (ICD-10-PCS; 2017-07-14)
DX: O77.0 Labor and delivery complicated by meconium in amniotic fluid (principal); O24.429 Gestational diabetes mellitus in childbirth, unspecified control; O70.1 Second degree perineal laceration during delivery; O75.81 Maternal exhaustion complicating labor and delivery; O69.81X0 Labor and delivery complicated by cord around neck, without compression, not applicable or unspecified; Z37.0 Single live birth; Z3A.40 40 weeks gestation of pregnancy; Z87.891 Personal history of nicotine dependence
CPT/HCPCS: 36415; 80307; 81005; 82803; 85025; 85027; 86592; 86850; 86900; 86901; 94760; J2300; J2590; J3490; S0119

== ENCOUNTER 2018-12-01 16:54 | Outpatient (CLI) | payer OTHER ==
--- NOTE | 2018-12-01 17:45 | Non Stress Test Report ---
Non Stress Test Datetime Report Generated by CPN: 12/01/2018 17:45 INDICATION Indication for Study: Ordered by Provider MONITORING Monitor Explained: Monitor Explained; Test Explained Time on Monitor: 12/01/2018 17:00 Time off Monitor: 12/01/2018 17:34 NST Duration: 34 NST INTERVENTIONS NST Interventions: PO Hydration Physician Notified NST: Dr. Bolaños BABY A: [id number] BABY A Movement : Present Contraction Frequency : Irregular FHR Baseline : 140 Accelerations : 15X15 Decelerations : None Variability : Moderate 6-25bpm NST Review: Meets Criteria for Reactive NST NST Review and Verified By : Javon Gonzales, RN NST Results: Reactive NST REPORT Report Trigger: Send Report
== END 2018-12-01 17:44 | disposition home or self-care (01) ==
LOC: LC 16:54
PROVIDERS: ATTEND Student in an Organized Health Care Education/Training Program
PROC: 4A1HXCZ Monitoring of Products of Conception, Cardiac Rate, External Approach (ICD-10-PCS; principal; 2018-12-01)
DX: O47.1 False labor at or after 37 completed weeks of gestation (principal); Z3A.38 38 weeks gestation of pregnancy
CPT/HCPCS: 59025

== ENCOUNTER 2018-12-04 10:23 | Inpatient (IN) | payer OTHER ==
[2018-12-04 11:08] LABS: APPEARANCE,URINE SLIGHTLY-CLOUDY; BILIRUBIN,URINE NEGATIVE (NEGATIVE); COLOR,URINE YELLOW; GLUCOSE, URINE NEGATIVE (NEGATIVE); KETONES,URINE TRACE mg/dL (NEGATIVE); LEUKOCYTE ESTERASE,URINE NEGATIVE (NEGATIVE); NITRITE,URINE NEGATIVE (NEGATIVE); PROTEIN,URINE NEGATIVE (NEGATIVE); URINE SPECIFIC GRAVITY 1.017; UROBILINOGEN,URINE NEGATIVE mg/dL (<2.0)
[2018-12-04 11:23] LABS: URINE AMPHETAMINES SCREEN NEGATIVE; URINE BARBITURATES SCREEN NEGATIVE; URINE BENZODIAZEPINES SCREEN NEGATIVE; URINE COCAINE SCREEN NEGATIVE; URINE MARIJUANA (THC) SCREEN NEGATIVE; URINE METHADONE SCREEN NEGATIVE; URINE PHENCYCLIDINE SCREEN NEGATIVE
[2018-12-04] MEDS ORDERED: RINGERS SOLUTION,LACTATED 1,000 ML IV ONE (12:42)
[2018-12-04] MEDS ORDERED: RINGERS SOLUTION,LACTATED 1,000 ML IV PRN (12:42)
[2018-12-04] MEDS ORDERED: LIDOCAINE 1% INJ-PF (10 MG/ML) 30 ML SDV ONE (12:57)
[2018-12-04] MEDS ORDERED: OXYTOCIN/NORMAL SALINE 20 UNIT/1,000 ML RTUINJ ONE (12:57)
[2018-12-04] MEDS ORDERED: MISOPROSTOL 0.2 MG TABLET ONE (12:57)
[2018-12-04] MEDS ORDERED: OXYTOCIN 10 UNIT/ML VIAL ONE (12:57)
--- NOTE | 2018-12-04 13:35 | Admission Physical ---
Datetime Report Generated by CPN: 12/04/2018 13:35 CURRENT ADMISSION Chief Complaint: Uterine Contractions Indication for Induction: Not Applicable Admit Impression : Term, Intrauterine ; Active Labor Admit Plan: Admit to Unit; Initiate Labor Protocol ALLERGIES Medication Allergies: No Medication Allergies: No Known Allergies (12/04/2018) Latex: No Latex Allergies OBSTETRICAL HISTORY EDC: 12/13/2018 00:00 : 2 Para: 1 Term: 0 : 0 SAB: 0 IAB: 0 Livin Gestational Diabetes: No Rh Sensitization: No Incompetent Cervix: No ADRIANA: No Infertility: No ART Treatment: No Uterine Anomaly: No IUGR: No Hx Previous C/S: No Macrosomia: No Hx Loss/Stillborn: No PIH: No Hx : No Placenta Previa/Abruption: No Depression/PP Depression: No PTL/PROM: No Post Hemorrhage: No Current Procedures: Ultrasound; NST Obstetrical History Comments: G1- 2017, 40 weeks 2 days, shoulder dystocia G2- Current SEE RECORDS Alcohol: No Marijuana : No Cocaine: No Other Illicit Drugs: No Cigarettes: Former Smoker. 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 Heart Disease: No Hosp/Surgery: Yes Autoimmune Disorder: No Anesthetic Complications: No Kidney Disease: No Abnormal Pap Smear: No Neuro/Epilepsy: No Psychiatric Disorders: No Other Medical Diseases: No Hepatitis/Liver Disease: No Significant Family History: No Varicosities/Phlebitis: No Trauma/Violence : No Thyroid Dysfunction: No Medical History Comments: Ankle surgery INFECTIOUS HISTORY Gonorrhea: No Genital Herpes: No Chlamydia: No Tuberculosis: No Syphilis: No Hepatitis: No HIV/AIDS Exposure: No Rash or Viral Illness: No HPV: No PHYSICAL EXAM General: Normal HEENT: Normal Neurologic: Normal Thyroid: Normal Heart: Normal Lungs: Normal Breast: Normal Back: Normal Abdomen: Normal Genitourinary Exam: Normal Extremities: Normal DTRs: Normal Pelvic Type: Adequate Vital Signs: Reviewed; Within Normal Limits VAGINAL EXAM Dilatation: 8 Effacement: 100 Station: -2 MEMBRANES Pooling: Negative Membranes: Bulging Amniotic Fluid Color: Clear FETUS A EGA: 38.5 Monitoring: External US FHR- Baseline: 130 Variability: Moderate 6-25bpm Accelerations: 15X15 Decelerations: None FHR Category: Category I Estimated Weight (gm): 3500 Presentation: Vertex PLANS FOR LABOR AND DELIVERY Labor and Delivery: Plan Pain Management: Epidural Feeding Preference: Breast Benefit of Breast Feed Discussed: Yes Circumcision: Yes INFORMED CONSENT Signature: with User ID: [email or web address]
[2018-12-04] MEDS ORDERED: GLYCERIN/WITCH HAZEL LEAF 1 EACH MED..WIPE TP PRN (14:02)
[2018-12-04] MEDS ORDERED: MAGNESIUM HYDROXIDE SUSP 30 ML UDCUP PO PRN (14:02)
[2018-12-04] MEDS ORDERED: BENZOCAINE/MENTHOL AEROSOL SPRAY 56 ML TOP PRN (14:02)
[2018-12-04] MEDS ORDERED: DIPHENHYDRAMINE HCL 25 MG CAPSULE PO PRN (14:02)
[2018-12-04] MEDS ORDERED: PROMETHAZINE HCL 25 MG TABLET PO PRN (14:02)
[2018-12-04] MEDS ORDERED: ACETAMINOPHEN 650 MG SUPP.RECT PR PRN (14:02)
[2018-12-04] MEDS ORDERED: ZOLPIDEM TARTRATE 5 MG TABLET PO PRN (14:02)
[2018-12-04] MEDS ORDERED: NA PHOS,M-B/NA PHOS,DI-BA (ADULT) 133 ML ENEMA PR PRN (14:02)
[2018-12-04] MEDS ORDERED: PSEUDOEPHEDRINE HCL 30 MG TABLET PO PRN (14:02)
[2018-12-04] MEDS ORDERED: MEASLES,MUMPS&RUBELLA VACC/PF 0.5 ML VIAL SUBCUT PRN (14:02)
[2018-12-04] MEDS ORDERED: DIPH/PERTUSS(ACELL)/TETANUS VAC/PF 0.5 ML SYR (>=10YO) IM PRN (14:02)
[2018-12-04] MEDS ORDERED: OXYTOCIN/NORMAL SALINE 20 UNIT/1,000 ML RTUINJ IV PRN (14:02)
[2018-12-04] MEDS ORDERED: DIBUCAINE 1% OINTMENT 56 GM TP PRN (14:02)
[2018-12-04] MEDS ORDERED: PROMETHAZINE HCL INJ 25 MG/1 ML VIAL IV PRN (14:02)
[2018-12-04] MEDS ORDERED: ACETAMINOPHEN WITH CODEINE #3 TABLET PO PRN ×2 (14:02)
[2018-12-04] MEDS ORDERED: PROMETHAZINE HCL 25 MG SUPP.RECT PR PRN (14:02)
[2018-12-04 16:16] LABS: ABSOLUTE BASOPHILS # (AUTO) 0.1 10^3/uL (0.0-0.2); ABSOLUTE MONOCYTES (AUTO) 0.4 10^3/uL (0.1-1.4); ABSOLUTE NEUT (AUTO) 15.7 10^3/uL (1.7-8.2); BASOPHILS % (AUTO) 0.4 % (0-2); EOSINOPHILS % (AUTO) 0.3 % (0-6); HEMATOCRIT 40.1 % (36.0-47.0); HEMOGLOBIN 13.7 g/dL (12.0-15.5); LYMPHOCYTES % (AUTO) 5.9 % (13-45); MEAN CORPUSCULAR HGB CONC 34.1 g/dL (32.0-36.0); MEAN CORPUSCULAR VOLUME 88 fl (80-97); MONOCYTES % (AUTO) 2.6 % (3-13); PLATELET COUNT 196 10^3/uL (150-450); RED BLOOD COUNT 4.55 10^6/uL (3.72-5.28); RED CELL DISTRIBUTION WIDTH 13.5 % (11.5-14.0); SEGMENTED NEUTROPHILS % (AUTO) 90.8 % (42-78); TOTAL CELLS COUNTED % (AUTO) 100 %; WHITE BLOOD COUNT 17.3 10^3/uL (4.0-10.5)
--- NOTE | 2018-12-04 17:01 | Delivery Summary ---
Del Sum A-C Datetime Report Generated by CPN: 12/04/2018 17:00 DELIVERY PERSONNEL DELIVERY PERSONNEL: [id number] Delivery Doctor:: Radha Gonzales MD Labor and Delivery Nurse:: Doris Amado, analytics specialist Nurse:: Zulydejan Teran, RN MATERNAL INFORMATION Delivery Anesthesia: None Medications After Delivery: Pitocin Bolus-Please Comment; Pitocin Drip 20 Units/1000ml NSS Estimated Blood Loss (ml): 200 Delivery QBL: 75 Maternal Complications: None LABOR SUMMARY EDC: 12/13/2018 00:00 No. Babies in Womb: 1 Labor Anesthesia: None LABOR INFORMATION Reason for Induction: Not Applicable Onset of Labor: 12/04/2018 10:49 Oxytocin: N/A Group B Beta Strep: neg Antibiotics # of Doses: 0 Steroids Given: None Reason Steroids Not Administered: Not Applicable MEMBRANES Membranes Rupture Method: Artificial Rupture of Membranes: 12/04/2018 13:38 Length of Rupture (hr): 0.27 Amniotic Fluid Color: Clear Amniotic Fluid Amount: Small Amniotic Fluid Odor: Normal STAGES OF LABOR Stage 3 hr: 0 Stage 3 min: 4 Total Time in Labor hr: 3 Total Time in Labor min: 9 VAGINAL DELIVERY Episiotomy: None Laceration #1: None Laceration Extension #1: N/A Other Laceration: skid lao Laceration Repair: Not Applicable Sponge Count Correct: N/A BABY A INFORMATION Delivery Date/Time: 12/04/2018 13:54 Method of Delivery: Vaginal Born in Route : No : N/A Forceps: N/A Vacuum Extraction: N/A Shoulder Dystocia : No PRESENTATION/POSITION BABY A Presentation: Cephalic Cephalic Presentation: Vertex PLACENTA INFORMATION BABY A Placenta Delivery Time : 12/04/2018 13:58 Placenta Method of Delivery: Spontaneous Placenta Status: Delivered SCORES BABY A Heart Rate 1 min: >100 bpm Resp Effort 1 min: Good Cry Reflex Irritability 1 min: Cough or Sneeze or Pulls Away Muscle Tone 1 min: Active Motion Color 1 min: Blue/Pale Resuscitation Effort 1 min: Tactile Stimulation SCORE 1 MIN: 8 Heart Rate 5 min: >100 bpm Resp Effort 5 min: Good Cry Reflex Irritability 5 min: Cough or Sneeze or Pulls Away Muscle Tone 5 min: Active Motion Color 5 min: Completely [place] Resuscitation Effort 5 min: Tactile Stimulation SCORE 5 MIN: 10 INFANT INFORMATION BABY A Gestational Age at Delivery: 38.5 Gestational Status: Early Term- 37- 38.6 Weeks Infant Outcome : Liveborn Infant Condition : Stable Infant Sex: Female IDENTIFICATION BABY A Verification Date/Time: 12/04/2018 14:16 ID Band Number: [id number] Mother's Name Verified: Yes Infant RN Verifying Infant: Javon Ross CHARLIE, HGrazyna Teran RN WEIGHT/LENGTH BABY A Infant Birthweight (gm): 3334 Weight (lb): 7 Weight (oz): 6 Length (in): 19.75 Infant Length (cm): 50.17 CORD INFORMATION BABY A No. Cord Vessels: 3 Nuchal Cord : N/A Cord Blood Taken: Yes-For Eval (Mom's Blood Type - or O+) Infant Suction: None ASSESSMENT BABY A Infant Complications: None Physical Findings at Delivery: Within Normal Limits Infant Respirations: Appears Normal Skin to Skin: Yes Radiation Engineer/ALS Called : No Care By: Hao Teran RN SIGNATURES Signature: with User ID: [email or web address]
[2018-12-04] MEDS: FERROUS SULFATE 325 MG TABLET PO SCH (17:40)
[2018-12-04] MEDS: DOCUSATE SODIUM 100 MG CAPSULE PO SCH (17:40)
[2018-12-04] MEDS: IBUPROFEN 800 MG TABLET PO SCH (21:11)
[2018-12-04] MEDS: FAMOTIDINE 20 MG TABLET PO SCH (21:12)
[2018-12-05] MEDS: IBUPROFEN 800 MG TABLET PO SCH ×4 (05:05→22:00)
[2018-12-05 06:18] LABS: HEMATOCRIT 36.3 % (36.0-47.0); HEMOGLOBIN 12.6 g/dL (12.0-15.5); MEAN CORPUSCULAR HEMOGLOBIN 30.3 pg (27.0-33.4); MEAN CORPUSCULAR HGB CONC 34.5 g/dL (32.0-36.0); MEAN CORPUSCULAR VOLUME 88 fl (80-97); PLATELET COUNT 153 10^3/uL (150-450); RED BLOOD COUNT 4.15 10^6/uL (3.72-5.28); RED CELL DISTRIBUTION WIDTH 13.5 % (11.5-14.0); WHITE BLOOD COUNT 12.3 10^3/uL (4.0-10.5)
[2018-12-05] MEDS: FERROUS SULFATE 325 MG TABLET PO SCH ×2 (09:23→18:15)
[2018-12-05] MEDS: DOCUSATE SODIUM 100 MG CAPSULE PO SCH ×2 (09:23→18:15)
[2018-12-05] MEDS: FAMOTIDINE 20 MG TABLET PO SCH ×2 (09:23→21:06)
[2018-12-05] MEDS: PRENATAL VITAMIN W DHA CAPSULE PO SCH (09:23)
[2018-12-05] MEDS: SENNOSIDES/DOCUSATE 8.6-50 MG 1 EACH TABLET PO SCH (09:49)
--- NOTE | 2018-12-05 10:33 | PDOC PROGRESS REPORT ---
Subjective-OB Progress Note for:: 12/05/18 Subjective: Pt doing well, she reports light bleeding, reg diet and voiding without difficulty. She has no complaints. Physical Exam (OB) Vital Signs: Temp Pulse Resp BP Pulse Ox 98.3 F 80 18 101/65 99 12/05/18 09:00 12/05/18 09:00 12/05/18 09:00 12/05/18 09:00 12/05/18 09:00 Intake & Output 12/04/18 12/05/18 12/06/18 06:59 06:59 06:59 Weight 83.9 kg - PIH/Pre-Eclampsia Headache: Absent Epigastric Pain: No Visual Changes: No - Lochia Lochia Amount: Scant < 10 ml Lochia Color: Rubra/Red - Abdomen Description: Tender, Soft Hernia Present: No Fundal Description: Firm, Midline Fundal Height: u/u - u/2 Objective-Diagnostic Laboratory: 12/05/18 06:07 12/04/18 12/04/18 12/04/18 10:35 16:03 16:03 WBC 17.3 H RBC 4.55 Hgb 13.7 Hct 40.1 MCV 88 MCH 30.0 MCHC 34.1 RDW 13.5 Plt Count 196 Seg Neutrophils % 90.8 H Lymphocytes % 5.9 L Monocytes % 2.6 L Eosinophils % 0.3 Basophils % 0.4 Absolute Neutrophils 15.7 H Absolute Lymphocytes 1.0 Absolute Monocytes 0.4 Absolute Eosinophils 0.0 Absolute Basophils 0.1 Urine Color YELLOW Urine Appearance SLIGHTLY-CLOUDY Urine pH 6.0 Ur Specific Ira 1.017 Urine Protein NEGATIVE Urine Glucose (UA) NEGATIVE Urine Ketones TRACE H Urine Blood LARGE H Urine Nitrite NEGATIVE Ur Leukocyte Esterase NEGATIVE Blood Type O POSITIVE Antibody Screen NEGATIVE 12/05/18 06:07 WBC 12.3 H RBC 4.15 Hgb 12.6 Hct 36.3 MCV 88 MCH 30.3 MCHC 34.5 RDW 13.5 Plt Count 153 Seg Neutrophils % Lymphocytes % Monocytes % Eosinophils % Basophils % Absolute Neutrophils Absolute Lymphocytes Absolute Monocytes Absolute Eosinophils Absolute Basophils Urine Color Urine Appearance Urine pH Ur Specific Ira Urine Protein Urine Glucose (UA) Urine Ketones Urine Blood Urine Nitrite Ur Leukocyte Esterase Blood Type Antibody Screen Assessment and Plan(PN) - Assessment and Plan (1) Normal vaginal delivery Is this a current diagnosis for this admission?: Yes (2) Spontaneous rupture of amniotic membranes Is this a current diagnosis for this admission?: Yes (3) Thick meconium stained amniotic fluid Is this a current diagnosis for this admission?: Yes - Time Spent with Patient Time with patient: Less than 15 minutes Medications reviewed and adjusted accordingly: Yes - Disposition Anticipated Discharge: Home Within: within 24 hours
[2018-12-06] MEDS: IBUPROFEN 800 MG TABLET PO SCH ×2 (07:01→17:23)
--- NOTE | 2018-12-06 10:46 | PDOC DISCHARGE SUMMARY ---
Final Diagnosis Discharge Date: 12/06/18 - Final Diagnosis (1) Normal vaginal delivery Is this a current diagnosis for this admission?: Yes (2) Spontaneous rupture of amniotic membranes Is this a current diagnosis for this admission?: Yes (3) Thick meconium stained amniotic fluid Is this a current diagnosis for this admission?: Yes Discharge Data - Discharge Medication Prescriptions: Ibuprofen [Motrin 800 mg Tablet] 800 mg PO Q8HP PRN #60 tablet PRN Reason: Home Medications: No122/Iron/Folic Acid [ Multi Tablet] 1 each PO DAILY 06/10/17 Ranitidine HCl [Zantac 75 mg Tablet] 75 mg PO PRN PRN 07/14/17 Ibuprofen [Motrin 800 mg Tablet] 800 mg PO Q8HP PRN #60 tablet 12/06/18 Procedures: NST Intrapartum Procedure(s): Spontaneous Vaginal Delivery - Diagnosis Test Laboratory: Temp Pulse Resp BP Pulse Ox 97.8 F 70 16 118/66 97 12/06/18 07:37 12/06/18 07:37 12/06/18 07:37 12/06/18 07:37 12/06/18 07:37 12/04/18 12/04/18 12/05/18 10:35 16:03 06:07 RBC 4.55 4.15 Hgb 13.7 12.6 Hct 40.1 36.3 Urine Opiates Screen NEGATIVE - Discharge information/Instructions Discharge Activity: Balance Activity w/Rest, Pelvic Rest Discharge Diet: Regular Disposition: HOME, SELF-CARE Follow up with: [facility] in: 4, Weeks
[2018-12-06 11:00] VITALS: BP 101/65
[2018-12-06] MEDS: DOCUSATE SODIUM 100 MG CAPSULE PO SCH (12:05)
[2018-12-06] MEDS: PRENATAL VITAMIN W DHA CAPSULE PO SCH (12:05)
[2018-12-06] MEDS: FAMOTIDINE 20 MG TABLET PO SCH (12:05)
[2018-12-06] MEDS: SENNOSIDES/DOCUSATE 8.6-50 MG 1 EACH TABLET PO SCH (12:05)
[2018-12-06] MEDS: FERROUS SULFATE 325 MG TABLET PO SCH (12:05)
== END 2018-12-06 17:24 | disposition home or self-care (01) | DRG 807 ==
LOC: LC 10:23 → LR 12:49 → 2S 16:33
PROVIDERS: ADMIT Obstetrics & Gynecology; ATTEND Obstetrics & Gynecology
PROC: 10E0XZZ Delivery of Products of Conception, External Approach (ICD-10-PCS; principal; 2018-12-04)
DX: O77.0 Labor and delivery complicated by meconium in amniotic fluid (principal); Z37.0 Single live birth; Z3A.38 38 weeks gestation of pregnancy
CPT/HCPCS: 36415; 80307; 81005; 85025; 85027; 86592; 86850; 86900; 86901; J2590; J3490